=== PATIENT | male | born 1955 | race American Indian/Alaskan Native ===

== ENCOUNTER 2017-12-02 21:16 | Emergency (ER) | payer OTHER ==
[2017-12-02 21:29] VITALS: BP 164/87
[2017-12-02] MEDS ORDERED: ASPIRIN PO ONE (21:29)
[2017-12-02 21:58] LABS: Basophils # (Auto) 0.1 K/mm3 (0.0-0.1); Basophils % (Auto) 0.6 % (0.0-1.8); Eosinophils # (Auto) 0.1 K/mm3 (0.0-0.4); Eosinophils % (Auto) 0.8 % (0.0-4.3); Hematocrit 45.3 % (35.5-45.6); Lymphocytes # (Auto) 3.3 K/mm3 (1.2-5.4); Lymphocytes % (Auto) 33.7 % (13.4-35.0); Mean Corpuscular HGB Conc 33 % (32-34); Mean Corpuscular Hemoglobin 29 pg (28-32); Mean Corpuscular Volume 87 fl (84-94); Monocytes # (Auto) 0.9 K/mm3 (0.0-0.8); Monocytes % (Auto) 9.6 % (0.0-7.3); Platelet Count 255 K/mm3 (140-440); Red Blood Count 5.23 M/mm3 (3.65-5.03)
[2017-12-02 22:08] LABS: BUN/Creatinine Ratio 15; Blood Urea Nitrogen 12 mg/dL (9-20); Calcium 9.4 mg/dL (8.4-10.2); Hemolysis Index 5
== END 2017-12-03 10:00 | disposition left against medical advice (07) ==
LOC: ED 21:16
DX: R07.9 Chest pain, unspecified (principal); Z53.21 Procedure and treatment not carried out due to patient leaving prior to being seen by health care provider
CPT/HCPCS: 36415; 80048; 84484; 85025; 93005; 93010

== ENCOUNTER 2018-10-09 13:45 | Inpatient (IN) | payer MEDICARE, OTHER ==
--- NOTE | 2018-10-09 13:56 | Emergency Department Report ---
Blank Doc - Documentation Documentation: 63-year-old male that presents with left side headache, left sided numbness, and headache. Stated pain started sudden yesterday when he was walking. Stated numbness is intermittent. Currently patient denies any numbness. Describes headache as 6/10. Denies worst headache or tunderclap headache. Patient is neurologically intake, A/O x3. Normal strength. No neuro deficits noted on exam. V/S stable Will order CT scan Sent to [facility] for further evaluation and treatment
--- NOTE | 2018-10-09 14:38 | Cat Scan Report ---
CT HEAD WITHOUT CONTRAST: HISTORY: Headache. TECHNIQUE: Sequential 2.5mm CT images. COMPARISON: none. FINDINGS: Cerebral Parenchyma: Within normal limits. 5 mm chronic lacunar infarct versus dilated perivascular space is noted in the left basal ganglia. Cerebellum: Within normal limits. Brainstem: Within normal limits. Ventricles: Normal. Sella: Normal. Extra-axial spaces: Normal. Basal Cisterns: Normal. Intracranial Hemorrhage: None. Midline Shift: None. Calvarium: Normal. Sinuses: 1 cm polyp versus mucus retention cyst is partially imaged in the superior right maxillary sinus. The remaining sinuses are clear. Mastoid Air Cells: Normal. Visualized Orbits: Normal. IMPRESSION: No acute intracranial process. 5 mm dilated perivascular space versus chronic lacunar infarct in the left basal ganglia. I favor a dilated perivascular space. Right maxillary sinus disease as described.
[2018-10-09 14:42] LABS: Hematocrit 42.4 % (35.5-45.6); Hemoglobin 14.2 gm/dl (11.8-15.2); Mean Corpuscular HGB Conc 34 % (32-34); Mean Corpuscular Volume 84 fl (84-94); Platelet Count 271 K/mm3 (140-440); Red Blood Count 5.05 M/mm3 (3.65-5.03); Red Cell Distribution Width 13.5 % (13.2-15.2)
--- NOTE | 2018-10-09 14:59 | Emergency Department Report ---
<ERICA CHEUNG - Last Filed: 10/09/18 16:02> ED Neuro Deficit HPI - General Chief Complaint: Weakness Stated Complaint: LFT SIDE NUMB/HEAD PAIN Time Seen by Provider: 10/09/18 13:52 Source: patient Mode of arrival: Ambulatory Limitations: No Limitations - History of Present Illness Initial Comments: Patient is a 63-year-old -Sud[place] male who comes to the ER today complaining of an episode he experienced last night. He was walking and developed left arm numbness and tingling after he felt a pop in his head. He denies any difficulty walking after the incident, facial weakness, or difficulty finding words or with speech after the episode last night. He states that he went home, laid down and went within a couple hours the symptoms resolved. He has no numbness or tingling today but he does have generalized weakness. rx statin asa metoprolol metformin hctz protnoix PMH HTN HPLD DM STRESS TEST/CATH IN PAST HAVE BEEN NORMAL PER PT-- NO STENT/MO DENIES PREVIOUS TIA/CVA NEG TOBACCO BEER DAILY NO DRUGS PSH KNEE -: Sudden Location: left arm Presenting Symptoms: Present: Sudden, Severe Headache. Absent: Weak/Paralyzed One Side, Blurred/Loss of Vision, Facial Droop/Numbness, Unable to Speak Clearly, Altered Mental Status History of same: No Place: home Severity: mild Quality: weak, numb, other (started yesterday evening while walking) Improves With: time Worsens With: none On Anticoagulants: No (asa) Context: sudden onset Associated Symptoms: headaches Treatments Prior to Arrival: Aspirin - Related Data Home Medications: Home Medications Medication Instructions Recorded Confirmed Last Taken Metoprolol [Lopressor TAB] 50 mg PO DAILY 01/31/15 10/09/18 08/02/15 metFORMIN [Glucophage] 500 mg PO BID 01/31/15 10/09/18 08/02/15 hydroCHLOROthiazide [Hctz] 12.5 mg PO DAILY 07/16/15 10/09/18 08/02/15 Aspirin [Aspirin BABY CHEW TAB] 81 mg PO DAILY 08/02/15 10/09/18 08/02/15 NIFEdipine XL [Procardia Xl] 90 mg PO DAILY 10/09/18 10/09/18 Unknown Previous Rx's Medication Instructions Recorded Last Taken Type Pantoprazole [Protonix TAB] 20 mg PO BID #60 tablet. 07/17/15 08/02/15 Rx Allergies/Adverse Reactions: Allergies Allergy/AdvReac Type Severity Reaction Status Date / Time No Known Allergies Allergy Verified 10/09/18 13:47 ED Review of Systems Comment: All other systems reviewed and negative Eyes: denies: eye pain ENT: denies: ear pain Respiratory: denies: cough Cardiovascular: denies: chest pain Endocrine: denies: flushing Neurological: as per HPI, headache, weakness, numbness, paresthesias. denies: confusion, abnormal gait, vertigo Psychiatric: denies: anxiety Hematological/Lymphatic: denies: easy bleeding ED Past Medical Hx - Past Medical History Hx Hypertension: Yes Hx Diabetes: Yes Hx Arthritis: Yes - Surgical History Additional Surgical History: right knee surgery, heart cath x3 - Family History Family history: no significant - Social History Smoking Status: Former Smoker Substance Use Type: None - Medications Home Medications: Home Medications Medication Instructions Recorded Confirmed Last Taken Type Metoprolol [Lopressor TAB] 50 mg PO DAILY 01/31/15 10/09/18 08/02/15 History metFORMIN [Glucophage] 500 mg PO BID 01/31/15 10/09/18 08/02/15 History hydroCHLOROthiazide [Hctz] 12.5 mg PO DAILY 07/16/15 10/09/18 08/02/15 History Pantoprazole [Protonix TAB] 20 mg PO BID #60 tablet. 07/17/15 10/09/18 08/02/15 Rx Aspirin [Aspirin BABY CHEW TAB] 81 mg PO DAILY 08/02/15 10/09/18 08/02/15 History NIFEdipine XL [Procardia Xl] 90 mg PO DAILY 10/09/18 10/09/18 Unknown History ED Neuro Physical Exam - General Limitations: No Limitations General appearance: alert Suspected Stroke: No (TIA) - Head Head exam: Present: atraumatic - NIHSS 1a. Level of Consciousness: alert/keenly responsive 1b. LOC Questions: answers both correctly 1c. LOC Commands: performs tasks correctly 2. Best Gaze: normal 3. Visual: no visual loss 4. Facial Palsy: normal symmetrical movement 5b. Motor Arm Right: no drift 5a. Motor Arm Left: no drift 6a. Motor Leg Left: no drift 6b. Motor Leg Right: no drift 7. Limb Ataxia: absent 8. Sensory: normal 9. Best Language: no aphasia 10. Dysarthria: normal 11. Extinction/Inattention: no abnormality Total Score: 0 Stroke Severity: No Stroke Symptoms - Psychiatric Psychiatric exam: Present: normal affect, normal mood - Skin Skin exam: Present: warm, dry, intact ED Course - Reevaluation(s) Reevaluation #1: 10/09/18 15:[address] SOTO Reevaluation #2: 10/09/18 16:[address] RAE PT TO BE ADMITTED FOR FURTHER EVALUATION - Lab Data Result diagrams: 10/09/18 14:30 10/09/18 14:30 - EKG Data -: EKG Interpreted by Me EKG shows normal: sinus rhythm When compared to previous EKG there are: changes noted Interpretation: no acute changes - Radiology Data Radiology results: report reviewed NO ACUTE BLEED - Medical Decision Making LABS NOTED CT NOTED --DISCUSSED WITH DR SOTO NEURO INTACT- NO PRONATOR DRIFT, NO CN DEF., AMBULATORY GEN WEAKNESS HX HTN, HPLD, DM EMR REVIEWED DISCUSSED WITH DR RAE WILL BE ADMITTED FOR EVALUATION Labs 10/09/18 10/09/18 14:30 14:30 WBC 6.8 RBC 5.05 H Hgb 14.2 Hct 42.4 MCV 84 MCH 28 MCHC 34 RDW 13.5 Plt Count 271 Sodium 137 Potassium 4.1 Chloride 97.4 L Carbon Dioxide 25 Anion Gap 19 BUN 10 Creatinine 0.8 Estimated GFR > 60 BUN/Creatinine Ratio 13 Glucose 222 H Calcium 9.0 Total Bilirubin 0.40 AST 16 ALT 14 Alkaline Phosphatase 65 Troponin T < 0.010 Total Protein 7.7 Albumin 4.4 Albumin/Globulin Ratio 1.3 - Differential Diagnosis ro tia - Core Measures AMI Core Measures Followed: No Measure Exclusions: not indicated - Thrombolytic Inclusion/Exclusion Thrombolytic Exclusion Criteria: Symptom Onset > 3 Hours Thrombolytic Inclusion Criteria: Negative CT Scan for ICH, Age 18 or Older ED Disposition Clinical Impression: Weakness HTN (hypertension) Qualifiers: Hypertension type: unspecified Qualified Code(s): I10 - Essential (primary) hypertension Disposition: OP ADMIT IP TO THIS HOSP Is pt being admited?: Yes Does the pt Need Aspirin: Yes Condition: Stable Instructions: Hypertension (ED) Time of Disposition: 15:16 ED Neuro Deficit EXAM - General General appearance: alert Limitations: No Limitations - Head Head exam: Positive: atraumatic - Eye Eye exam: PERRL - Neurological Neurological Exam: Positive: Alert, Altered, Oriented X3, CN II-XII Intact, No rmal Gait Neuro Exam: Facial Palsy with Forehead Movement: Normal, Facial Palsy without Forehead Movement: Normal - Stefania Coma Scale Best Eye Response (Stefania): (4) open spontaneously Best Motor Response (Stefania): (6) obeys commands Best Verbal Response (Stefania): (5) oriented Stefania Total: 15 - Psychiatric Psychiatric exam: Positive: normal affect, normal mood - Skin Skin exam: Positive: warm, dry <ALBINO SOTO - Last Filed: 10/09/18 17:06> ED Review of Systems ROS: Stated complaint: LFT SIDE NUMB/HEAD PAIN Other details as noted in HPI ED Course Vital Signs 10/09/18 13:53 Temperature 97.9 F Pulse Rate 80 Respiratory 16 Rate Blood Pressure 149/86 O2 Sat by Pulse 99 Oximetry - Lab Data Result diagrams: 10/09/18 14:30 10/09/18 14:30 Lab Results 10/09/18 10/09/18 10/09/18 Range/Units 14:30 14:30 Unknown WBC 6.8 (4.5-11.0) K/mm3 RBC 5.05 H (3.65-5.03) M/mm3 Hgb 14.2 (11.8-15.2) gm/dl Hct 42.4 (35.5-45.6) % MCV 84 (84-94) fl MCH 28 (28-32) pg MCHC 34 (32-34) % RDW 13.5 (13.2-15.2) % Plt Count 271 (140-440) K/mm3 Sodium 137 (137-145) mmol/L Potassium 4.1 (3.6-5.0) mmol/L Chloride 97.4 L (98-107) mmol/L Carbon Dioxide 25 (22-30) mmol/L Anion Gap 19 mmol/L BUN 10 (9-20) mg/dL Creatinine 0.8 (0.8-1.5) mg/dL Estimated GFR > 60 ml/min BUN/Creatinine Ratio 13 % Glucose 222 H (75-100) mg/dL Calcium 9.0 (8.4-10.2) mg/dL Total Bilirubin 0.40 (0.1-1.2) mg/dL AST 16 (5-40) units/L ALT 14 (7-56) units/L Alkaline Phosphatase 65 (35-129) units/L Troponin T < 0.010 (0.00-0.029) ng/mL Total Protein 7.7 (6.3-8.2) g/dL Albumin 4.4 (3.9-5) g/dL Albumin/Globulin Ratio 1.3 % Urine Color Yellow (Yellow) Urine Turbidity Clear (Clear) Urine pH 5.0 (5.0-7.0) Ur Specific Barry 1.020 (1.003-1.030) Urine Protein <15 mg/dl (Negative) mg/dL Urine Glucose (UA) 150 (Negative) mg/dL Urine Ketones Neg (Negative) mg/dL Urine Blood Neg (Negative) Urine Nitrite Neg (Negative) Urine Bilirubin Neg (Negative) Urine Urobilinogen 4.0 (<2.0) mg/dL Ur Leukocyte Esterase Neg (Negative) Urine WBC (Auto) < 1.0 (0.0-6.0) /HPF Urine RBC (Auto) 2.0 (0.0-6.0) /HPF Urine Mucus Few /HPF - Medical Decision Making Pt bobbi possible TIa and will be admitted for further care. Critical care attestation.: If time is entered above; I have spent that time in minutes in the direct care of this critically ill patient, excluding procedure time.
[2018-10-09 15:01] LABS: Alanine Aminotransferase 14 units/L (7-56); BUN/Creatinine Ratio 13; Blood Urea Nitrogen 10 mg/dL (9-20)
[2018-10-09 15:02] LABS: Albumin 4.4 g/dL (3.9-5); Hemolysis Index 15
[2018-10-09] MEDS ORDERED: BABY ASPIRIN PO ONE (15:16)
[2018-10-09 16:10] LABS: Bilirubin,Urine NEG (Negative); Blood,Urine NEG (Negative); Color,Urine Yellow (Yellow); Mucus,Urine FEW /HPF; Protein,Urine <15 mg/dL mg/dL (Negative); WBC,Urine < 1.0 /HPF (0.0-6.0)
--- NOTE | 2018-10-09 16:36 | XRay Report ---
FINAL REPORT EXAM: XR CHEST ROUTINE 2V HISTORY: WEAKNESS TECHNIQUE: Two view chest PA and lateral PRIORS: None. FINDINGS: Cardiac and mediastinal contours are unremarkable. No focal pulmonary infiltrate is identified. No pleural fluid collection seen. Pulmonary vasculature is unremarkable. IMPRESSION: Negative two-view chest
[2018-10-09] MEDS ORDERED: DILAUDID IV PRN (22:59)
[2018-10-09] MEDS ORDERED: TYLENOL PO PRN (22:59)
[2018-10-09] MEDS ORDERED: SODIUM CHLORIDE FLUSH SYRINGE 10 ML IV PRN (22:59)
[2018-10-09] MEDS ORDERED: ZOFRAN IV PRN (22:59)
--- NOTE | 2018-10-09 23:08 | History and Physical Report ---
History of Present Illness Date of examination: 10/09/18 Date of admission: 10/09/18 15:59 Chief complaint: Left-sided numbness last night lasting for about 1 hour and resolved History of present illness: 63-year-old -Trist[place] male with history of hypertension and type 2 diabetes and hyperlipidemia comes in for left arm numbness and tingling which lasted for about 1 hour. Did not have any weakness in the left upper extremity and left lower extremity. Had some facial numbness also. Symptoms resolved over an hour time period no exacerbating or relieving factors. No residual deficits. Some blurred vision present. And some difficulty speaking yesterday. All symptoms have resolved completely Past Medical History Hx Hypertension: Yes Hx Diabetes: Yes Hx Arthritis: Yes Surgical History Additional Surgical History: right knee surgery, heart cath x3 Family History Family history: no significant Social History Smoking Status: Former Smoker Substance Use Type: None Medications Home Medications: Home Medications Medication Instructions Recorded Confirmed Last Taken Type Metoprolol [Lopressor TAB] 50 mg PO DAILY 01/31/15 10/09/18 08/02/15 History metFORMIN [Glucophage] 500 mg PO BID 01/31/15 10/09/18 08/02/15 History hydroCHLOROthiazide [Hctz] 12.5 mg PO DAILY 07/16/15 10/09/18 08/02/15 History Pantoprazole [Protonix TAB] 20 mg PO BID #60 tablet. 07/17/15 10/09/18 08/02/15 Rx Aspirin [Aspirin BABY CHEW TAB] 81 mg PO DAILY 08/02/15 10/09/18 08/02/15 History NIFEdipine XL [Procardia Xl] 90 mg PO DAILY 10/09/18 10/09/18 Unknown History Review of Systems Comment: All other systems reviewed and negative Eyes: denies: eye pain ENT: denies: ear pain Respiratory: denies: cough Cardiovascular: denies: chest pain Endocrine: denies: flushing Neurological: as per HPI, headache, weakness, numbness, paresthesias. denies: confusion, abnormal gait, vertigo Psychiatric: denies: anxiety Hematological/Lymphatic: denies: easy bleeding Medications and Allergies Allergies Allergy/AdvReac Type Severity Reaction Status Date / Time No Known Allergies Allergy Verified 10/09/18 13:47 Home Medications Medication Instructions Recorded Confirmed Last Taken Type Metoprolol [Lopressor TAB] 50 mg PO DAILY 01/31/15 10/09/18 08/02/15 History metFORMIN [Glucophage] 500 mg PO BID 01/31/15 10/09/18 08/02/15 History hydroCHLOROthiazide [Hctz] 12.5 mg PO DAILY 07/16/15 10/09/18 08/02/15 History Pantoprazole [Protonix TAB] 20 mg PO BID #60 tablet. 07/17/15 10/09/18 08/02/15 Rx Aspirin [Aspirin BABY CHEW TAB] 81 mg PO DAILY 08/02/15 10/09/18 08/02/15 History NIFEdipine XL [Procardia Xl] 90 mg PO DAILY 10/09/18 10/09/18 Unknown History Active Meds: Active Medications Acetaminophen (Tylenol) 650 mg PO Q4H PRN PRN Reason: Pain MILD(1-3)/Fever >100.5/CHRISTIAN Aspirin (Baby Aspirin) 81 mg PO DAILY [facility] Enoxaparin Sodium (Lovenox) 40 mg SUB-Q QDAY JOSE Famotidine (Pepcid) 20 mg PO BID JOSE Hydrochlorothiazide (Hctz) 12.5 mg PO DAILY JOSE Hydromorphone HCl (Dilaudid) 0.5 mg IV Q3H PRN PRN Reason: Pain , Severe (7-10) Metformin HCl (Glucophage) 500 mg PO BID JOSE Metoprolol Tartrate (Lopressor) 50 mg PO DAILY JOSE Nifedipine (Procardia Xl) 90 mg PO DAILY JOSE Ondansetron HCl (Zofran) 4 mg IV Q8H PRN PRN Reason: Nausea And Vomiting Oxycodone/Acetaminophen (Percocet 5/325) 1 tab PO Q6H PRN PRN Reason: Pain, Moderate (4-6) Pantoprazole Sodium (Protonix) 20 mg PO BID JOSE Sodium Chloride (Sodium Chloride Flush Syringe 10 Ml) 10 ml IV BID JOSE Sodium Chloride (Sodium Chloride Flush Syringe 10 Ml) 10 ml IV PRN PRN PRN Reason: LINE FLUSH Exam - Constitutional Vitals: Temp Pulse Resp BP Pulse Ox 98.0 F 70 18 164/92 97 10/09/18 18:39 10/09/18 18:39 10/09/18 18:39 10/09/18 18:39 10/09/18 18:39 Results - Labs CBC & Chem 7: 10/09/18 14:30 10/09/18 14:30 Labs: Laboratory Last Values WBC 6.8 K/mm3 (4.5-11.0) 10/09/18 14:30 RBC 5.05 M/mm3 (3.65-5.03) H 10/09/18 14:30 Hgb 14.2 gm/dl (11.8-15.2) 10/09/18 14:30 Hct 42.4 % (35.5-45.6) 10/09/18 14:30 MCV 84 fl (84-94) 10/09/18 14:30 MCH 28 pg (28-32) 10/09/18 14:30 MCHC 34 % (32-34) 10/09/18 14:30 RDW 13.5 % (13.2-15.2) 10/09/18 14:30 Plt Count 271 K/mm3 (140-440) 10/09/18 14:30 Sodium 137 mmol/L (137-145) 10/09/18 14:30 Potassium 4.1 mmol/L (3.6-5.0) 10/09/18 14:30 Chloride 97.4 mmol/L (98-107) L 10/09/18 14:30 Carbon Dioxide 25 mmol/L (22-30) 10/09/18 14:30 Anion Gap 19 mmol/L 10/09/18 14:30 BUN 10 mg/dL (9-20) 10/09/18 14:30 Creatinine 0.8 mg/dL (0.8-1.5) 10/09/18 14:30 Estimated GFR > 60 ml/min 10/09/18 14:30 BUN/Creatinine Ratio 13 % 10/09/18 14:30 Glucose 222 mg/dL (75-100) H 10/09/18 14:30 POC Glucose 110 (70-105) H 10/09/18 22:07 Calcium 9.0 mg/dL (8.4-10.2) 10/09/18 14:30 Total Bilirubin 0.40 mg/dL (0.1-1.2) 10/09/18 14:30 AST 16 units/L (5-40) 10/09/18 14:30 ALT 14 units/L (7-56) 10/09/18 14:30 Alkaline Phosphatase 65 units/L (35-129) 10/09/18 14:30 Troponin T < 0.010 ng/mL (0.00-0.029) 10/09/18 14:30 Total Protein 7.7 g/dL (6.3-8.2) 10/09/18 14:30 Albumin 4.4 g/dL (3.9-5) 10/09/18 14:30 Albumin/Globulin Ratio 1.3 % 10/09/18 14:30 Urine Color Yellow (Yellow) 10/09/18 Unknown Urine Turbidity Clear (Clear) 10/09/18 Unknown Urine pH 5.0 (5.0-7.0) 10/09/18 Unknown Ur Specific [place] 1.020 (1.003-1.030) 10/09/18 Unknown Urine Protein <15 mg/dl mg/dL (Negative) 10/09/18 Unknown Urine Glucose (UA) 150 mg/dL (Negative) 10/09/18 Unknown Urine Ketones Neg mg/dL (Negative) 10/09/18 Unknown Urine Blood Neg (Negative) 10/09/18 Unknown Urine Nitrite Neg (Negative) 10/09/18 Unknown Urine Bilirubin Neg (Negative) 10/09/18 Unknown Urine Urobilinogen 4.0 mg/dL (<2.0) 10/09/18 Unknown Ur Leukocyte Esterase Neg (Negative) 10/09/18 Unknown Urine WBC (Auto) < 1.0 /HPF (0.0-6.0) 10/09/18 Unknown Urine RBC (Auto) 2.0 /HPF (0.0-6.0) 10/09/18 Unknown Urine Mucus Few /HPF 10/09/18 Unknown Short CBC 10/09/18 Range/Units 14:30 WBC 6.8 (4.5-11.0) K/mm3 Hgb 14.2 (11.8-15.2) gm/dl Hct 42.4 (35.5-45.6) % Plt Count 271 (140-440) K/mm3 BMP 10/09/18 14:30 Sodium 137 Potassium 4.1 Chloride 97.4 L Carbon Dioxide 25 BUN 10 Creatinine 0.8 Glucose 222 H Calcium 9.0 Cardiac Enzymes 10/09/18 Range/Units 14:30 Troponin T < 0.010 (0.00-0.029) ng/mL Liver Function 10/09/18 Range/Units 14:30 Total Bilirubin 0.40 (0.1-1.2) mg/dL AST 16 (5-40) units/L ALT 14 (7-56) units/L Alkaline Phosphatase 65 (35-129) units/L Albumin 4.4 (3.9-5) g/dL Urine 10/09/18 Range/Units Unknown Urine Color Yellow (Yellow) Urine pH 5.0 (5.0-7.0) Ur Specific [place] 1.020 (1.003-1.030) Urine Protein <15 mg/dl (Negative) mg/dL Urine Glucose (UA) 150 (Negative) mg/dL - Imaging and Cardiology EKG: report reviewed (normal sinus rhythm right bundle-branch block and left ventricular hypertrophy heart rate of 68/m) Chest x-ray: report reviewed (no acute findings) Imaging and Cardiology: Head CT IMPRESSION: No acute intracranial process. 5 mm dilated perivascular space versus chronic lacunar infarct in the left basal ganglia. I favor a dilated perivascular space. Right maxillary sinus disease as described. Assessment and Plan Advance Directives: Yes (full code) VTE prophylaxis?: Chemical Plan of care discussed with patient/family: Yes - Patient Problems (1) TIA (transient ischemic attack) Current Visit: Yes Status: Acute Plan to address problem: TIA workup in the form of MRI brain and carotid duplex scan and echocardiogram. MRA was not ordered Patient to continue aspirin on a regular basis (2) HTN (hypertension) Current Visit: Yes Status: Chronic Qualifiers: Hypertension type: essential hypertension Qualified Code(s): I10 - Essentia l (primary) hypertension Plan to address problem: Continue antihypertensives (3) Type 2 diabetes mellitus Current Visit: Yes Status: Chronic Qualifiers: Diabetes mellitus skilled nursing insulin use: without skilled nursing use Plan to address problem: Check hemoglobin A1c Uncontrolled Adjust medications Add glimepiride (4) Hyperlipidemia Current Visit: Yes Status: Chronic Qualifiers: Hyperlipidemia type: mixed hyperlipidemia Qualified Code(s): E78.2 - Mixed hyperlipidemia Plan to address problem: Continue statins (5) DVT prophylaxis Current Visit: Yes Status: Acute Plan to address problem: On Lovenox and GI prophylaxis
[2018-10-10] MEDS: PEPCID PO SCH ×3 (00:10→22:15)
[2018-10-10] MEDS: PROTONIX PO SCH ×3 (00:10→22:14)
[2018-10-10 05:22] LABS: Basophils # (Auto) 0.1 K/mm3 (0.0-0.1); Basophils % (Auto) 0.7 % (0.0-1.8); Eosinophils # (Auto) 0.1 K/mm3 (0.0-0.4); Eosinophils % (Auto) 1.7 % (0.0-4.3); Hematocrit 40.5 % (35.5-45.6); Hemoglobin 13.3 gm/dl (11.8-15.2); Lymphocytes # (Auto) 3.9 K/mm3 (1.2-5.4); Lymphocytes % (Auto) 47.7 % (13.4-35.0); Mean Corpuscular HGB Conc 33 % (32-34); Mean Corpuscular Volume 84 fl (84-94); Monocytes # (Auto) 0.6 K/mm3 (0.0-0.8); Monocytes % (Auto) 7.7 % (0.0-7.3); Platelet Count 255 K/mm3 (140-440); Red Blood Count 4.82 M/mm3 (3.65-5.03); Red Cell Distribution Width 13.3 % (13.2-15.2)
[2018-10-10 05:51] LABS: Alanine Aminotransferase 11 units/L (7-56); Albumin 3.7 g/dL (3.9-5); BUN/Creatinine Ratio 13; Blood Urea Nitrogen 10 mg/dL (9-20); Calcium 8.6 mg/dL (8.4-10.2); Hemolysis Index 11
[2018-10-10] MEDS: HumaLOG SUB-Q SCH ×4 (09:00→22:30)
[2018-10-10] MEDS ORDERED: LOVENOX SUB-Q SCH ×2 (10:00→22:00)
--- NOTE | 2018-10-10 11:07 | Vascular Lab Report ---
FINAL REPORT EXAM: VL CAROTID DUPLEX BILAT HISTORY: TIA TECHNIQUE: Carotid ultrasound. Degree of carotid stenosis calculated by indirect methods via the pea k systolic velocities of the ICA and CCA and reference with the society of Radiologist and Ultrasound consensus conference radiology 2003. PRIORS: None currently available. FINDINGS: RIGHT CCA, ICA, and ECA (cm/s): 79, 64, and 80. Ratio = 0.81. LEFT CCA, ICA, and ECA (cm/s): 79, 58, and 71. Ratio = 0.73. There is plaque in both carotids. Both vertebral arteries demonstrate antegrade flow. Normal spectral rhythm is identified. IMPRESSION: No hemodynamically significant (> 50%) stenosis noted based on the ratios, velocities, and color D oppler images.
[2018-10-10] MEDS: BABY ASPIRIN PO SCH (11:34)
[2018-10-10] MEDS: PERCOCET 5/325 PO PRN ×2 (11:35→22:20)
[2018-10-10] MEDS: HCTZ PO SCH (11:35)
[2018-10-10] MEDS: GLUCOPHAGE PO SCH ×2 (11:35→19:16)
[2018-10-10] MEDS: AMARYL PO SCH (11:35)
[2018-10-10] MEDS: LOPRESSOR PO SCH (11:35)
[2018-10-10] MEDS: PROCARDIA XL PO SCH (11:36)
[2018-10-10] MEDS: SODIUM CHLORIDE FLUSH SYRINGE 10 ML IV SCH ×2 (11:37→22:31)
[2018-10-10 11:39] LABS: Chol/HDL Ratio 3.22 %
--- NOTE | 2018-10-10 12:10 | Magnetic Resonance Report ---
MRI OF THE BRAIN WITHOUT CONTRAST: HISTORY: TIA PROCEDURE: Multiplanar, multisequence MR imaging of the brain without IV contrast was performed. FINDINGS: The brain parenchyma signal intensity and its chang white interface are within normal limits on all sequences. Tiny dilated perivascular space in the left basal ganglia is noted. No evidence for acute ischemia, hemorrhage or mass. No chronic infarct or extra-axial fluid collection. The midline structures are central. The basal cisterns are patent. Normal ventricular size. The orbital cavities and sella turcica demonstrate no abnormality. The visualized paranasal sinuses and mastoid air cells are well aerated. 1 cm polyp in the inferior right maxillary sinus is again noted. IMPRESSION: Unremarkable non-enhanced MRI of the brain.
--- NOTE | 2018-10-10 16:46 | Progress Note ---
Assessment and Plan Assessment and plan: 63-year-old male patient with significant history of hypertension diabetes mellitus osteoarthritis was admitted through emergency room with left-sided weakness and numbness which resolved after 1 hour; not a candidate for TPA Patient had extensive neuro workup which was negative as mentioned --Possible TIA;, continue aspirin and statin Extensive neuro workup negative Follow neurology evaluation and recommendations Physical therapy and occupational therapy Workup :is negative so far; Carotid Doppler; less than 50% stenosis, not hemodynamically significant CT head without contrast; no acute intracranial abnormality, chronic lacunar infarct in the left basal ganglia, right maxillary sinus disease MRI brain; no acute abnormality Echocardiogram; pending Chest x-ray; normal study --Hypertension; moderate control, continue current antihypertensives When necessary medications --Type 2 diabetes mellitus; Accu-Chek sliding scale coverage and ADA diet Insulin as needed, hemoglobin A1c 7.3 --Dyslipidemia; continue statin and low cholesterol diet --Obesity; BMI 37.7; advised weight reduction when medically stable Physical therapy occupational therapy and rehabilitation Closely monitor the patient and adjust the management as needed Possible discharge in 1-2 days if stable History Interval history: Patient seen and examined,medical records reviewed. Patient feels better, no new complaints numbness and weakness completely resolved Vital signs stable Hospitalist Physical - Constitutional Vitals: Temp Pulse Resp BP Pulse Ox 97.8 F 76 20 156/90 98 10/10/18 11:42 10/10/18 11:42 10/10/18 11:42 10/10/18 11:42 10/10/18 11:42 General appearance: Present: no acute distress, well-nourished, obese - EENT Eyes: Present: PERRL, EOM intact - Neck Neck: Present: supple, normal ROM - Respiratory Respiratory effort: normal Respiratory: negative: rales, rhonchi, wheezing - Cardiovascular Rhythm: regular Heart Sounds: Present: S1 & S2 - Extremities Extremities: no ischemia, No edema - Abdominal General gastrointestinal: soft, non-tender, non-distended, normal bowel sounds - Integumentary Integumentary: Present: clear, warm - Psychiatric Psychiatric: appropriate mood/affect, cooperative - Neurologic Neurologic: CNII-XII intact, moves all extremities Results - Labs CBC & Chem 7: 10/10/18 04:56 10/10/18 04:56 Labs: Laboratory Last Values WBC 8.3 K/mm3 (4.5-11.0) 10/10/18 04:56 RBC 4.82 M/mm3 (3.65-5.03) 10/10/18 04:56 Hgb 13.3 gm/dl (11.8-15.2) 10/10/18 04:56 Hct 40.5 % (35.5-45.6) 10/10/18 04:56 MCV 84 fl (84-94) 10/10/18 04:56 MCH 28 pg (28-32) 10/10/18 04:56 MCHC 33 % (32-34) 10/10/18 04:56 RDW 13.3 % (13.2-15.2) 10/10/18 04:56 Plt Count 255 K/mm3 (140-440) 10/10/18 04:56 Lymph % (Auto) 47.7 % (13.4-35.0) H 10/10/18 04:56 Price % (Auto) 7.7 % (0.0-7.3) H 10/10/18 04:56 Eos % (Auto) 1.7 % (0.0-4.3) 10/10/18 04:56 Baso % (Auto) 0.7 % (0.0-1.8) 10/10/18 04:56 Lymph # 3.9 K/mm3 (1.2-5.4) 10/10/18 04:56 Price # 0.6 K/mm3 (0.0-0.8) 10/10/18 04:56 Eos # 0.1 K/mm3 (0.0-0.4) 10/10/18 04:56 Baso # 0.1 K/mm3 (0.0-0.1) 10/10/18 04:56 Seg Neutrophils % 42.2 % (40.0-70.0) 10/10/18 04:56 Seg Neutrophils # 3.5 K/mm3 (1.8-7.7) 10/10/18 04:56 Sodium 139 mmol/L (137-145) 10/10/18 04:56 Potassium 3.9 mmol/L (3.6-5.0) 10/10/18 04:56 Chloride 99.5 mmol/L (98-107) 10/10/18 04:56 Carbon Dioxide 28 mmol/L (22-30) 10/10/18 04:56 Anion Gap 15 mmol/L 10/10/18 04:56 BUN 10 mg/dL (9-20) 10/10/18 04:56 Creatinine 0.8 mg/dL (0.8-1.5) 10/10/18 04:56 Estimated GFR > 60 ml/min 10/10/18 04:56 BUN/Creatinine Ratio 13 % 10/10/18 04:56 Glucose 119 mg/dL (75-100) H 10/10/18 04:56 POC Glucose 183 (70-105) H 10/10/18 11:45 Hemoglobin A1c 7.3 % (4-6) H 10/09/18 23:09 Calcium 8.6 mg/dL (8.4-10.2) 10/10/18 04:56 Total Bilirubin 0.40 mg/dL (0.1-1.2) 10/10/18 04:56 AST 14 units/L (5-40) 10/10/18 04:56 ALT 11 units/L (7-56) 10/10/18 04:56 Alkaline Phosphatase 58 units/L (35-129) 10/10/18 04:56 Troponin T < 0.010 ng/mL (0.00-0.029) 10/09/18 14:30 Total Protein 6.5 g/dL (6.3-8.2) 10/10/18 04:56 Albumin 3.7 g/dL (3.9-5) L 10/10/18 04:56 Albumin/Globulin Ratio 1.3 % 10/10/18 04:56 Triglycerides 142 mg/dL (2-149) 10/10/18 04:56 Cholesterol 145 mg/dL (50-199) 10/10/18 04:56 LDL Cholesterol Direct 78 mg/dL (50-130) 10/10/18 04:56 HDL Cholesterol 45 mg/dL (40-59) 10/10/18 04:56 Cholesterol/HDL Ratio 3.22 % 10/10/18 04:56 Urine Color Yellow (Yellow) 10/09/18 Unknown Urine Turbidity Clear (Clear) 10/09/18 Unknown Urine pH 5.0 (5.0-7.0) 10/09/18 Unknown Ur Specific [place] 1.020 (1.003-1.030) 10/09/18 Unknown Urine Protein <15 mg/dl mg/dL (Negative) 10/09/18 Unknown Urine Glucose (UA) 150 mg/dL (Negative) 10/09/18 Unknown Urine Ketones Neg mg/dL (Negative) 10/09/18 Unknown Urine Blood Neg (Negative) 10/09/18 Unknown Urine Nitrite Neg (Negative) 10/09/18 Unknown Urine Bilirubin Neg (Negative) 10/09/18 Unknown Urine Urobilinogen 4.0 mg/dL (<2.0) 10/09/18 Unknown Ur Leukocyte Esterase Neg (Negative) 10/09/18 Unknown Urine WBC (Auto) < 1.0 /HPF (0.0-6.0) 10/09/18 Unknown Urine RBC (Auto) 2.0 /HPF (0.0-6.0) 10/09/18 Unknown Urine Mucus Few /HPF 10/09/18 Unknown
[2018-10-10] MEDS ORDERED: DILAUDID IV PRN (16:47)
--- NOTE | 2018-10-10 18:19 | Progress Note ---
Subjective Date of service: 10/10/18 Interval history: patient seen and fully assessed he is stable and neuro wexam is normal susopect TIA secondary to HTN the MRI is normal therefore no acutestroke recommend HTN control and statin to prevent further TIAs Objective - Vital Sign Vital Signs - 12hr 10/10/18 10/10/18 10/10/18 10:00 11:35 11:42 Temperature 97.8 F Pulse Rate 70 76 Respiratory 20 Rate Blood Pressure 154/85 156/90 O2 Sat by Pulse 98 98 Oximetry 10/10/18 16:42 Temperature 98.3 F Pulse Rate 60 Respiratory 20 Rate Blood Pressure 128/70 O2 Sat by Pulse 97 Oximetry - Laboratory Findings CBC and BMP: 10/10/18 04:56 10/10/18 04:56 Abnormal Lab Findings: Abnormal Labs 10/09/18 10/09/18 10/09/18 14:30 14:30 18:45 RBC 5.05 H Lymph % (Auto) [place] % (Auto) Chloride 97.4 L Glucose 222 H POC Glucose 106 H Hemoglobin A1c Albumin 10/09/18 10/09/18 10/10/18 22:07 23:09 04:56 RBC Lymph % (Auto) 47.7 H [place] % (Auto) 7.7 H Chloride Glucose POC Glucose 110 H Hemoglobin A1c 7.3 H Albumin 10/10/18 10/10/18 10/10/18 04:56 08:40 11:45 RBC Lymph % (Auto) [place] % (Auto) Chloride Glucose 119 H POC Glucose 132 H 183 H Hemoglobin A1c Albumin 3.7 L
[2018-10-10] MEDS: AUGMENTIN 875 MG PO SCH (22:14)
[2018-10-11 06:04] VITALS: BP 124/78
[2018-10-11] MEDS: HumaLOG SUB-Q SCH ×2 (07:30→11:30)
[2018-10-11] MEDS: LOPRESSOR PO SCH (08:00)
[2018-10-11] MEDS: AMARYL PO SCH (09:08)
[2018-10-11] MEDS: GLUCOPHAGE PO SCH (09:08)
[2018-10-11] MEDS: BABY ASPIRIN PO SCH (09:57)
[2018-10-11] MEDS: AUGMENTIN 875 MG PO SCH (09:57)
[2018-10-11] MEDS: PROCARDIA XL PO SCH (09:57)
[2018-10-11] MEDS: PROTONIX PO SCH (09:57)
[2018-10-11] MEDS: HCTZ PO SCH (09:57)
[2018-10-11] MEDS: PEPCID PO SCH (09:57)
[2018-10-11] MEDS: SODIUM CHLORIDE FLUSH SYRINGE 10 ML IV SCH (09:58)
[2018-10-11] MEDS: PERCOCET 5/325 PO PRN (10:04)
--- NOTE | 2018-10-11 12:24 | Discharge Summary ---
Providers - Providers Date of Admission: 10/09/18 15:59 Date of discharge: 10/11/18 Attending physician: SAMIRA CALDERON 10/09/18 22:59 Consult to Physician [CONS] Routine Comment: Consulting Provider: FARNAZ GONSALVES Physician Instructions: Reason For Exam: tia 10/10/18 15:33 Physical Therapy Evaluation and Treat [CONS] Routine Comment: Reason For Exam: TIA Primary care physician: ROWENA HERRING Hospitalization Reason for admission: Left sided weakness and numbness/resolved after 1 hr Condition: Stable Pertinent studies: Workup :is negative so far; Carotid Doppler; less than 50% stenosis, not hemodynamically significant CT head without contrast; no acute intracranial abnormality, chronic lacunar infarct in the left basal ganglia, right maxillary sinus disease MRI brain; no acute abnormality Echocardiogram; pending Chest x-ray; normal study Hospital course: 63-year-old male patient with significant history of hypertension diabetes mellitus osteoarthritis was admitted through emergency room with left-sided weakness and numbness which resolved after 1 hour; not a candidate for TPA, Patient had extensive neuro workup which was negative Today Patient is stable and ambulatory tolerating oral nutrition No new complaints, vital signs reviewed, Hemodynamically and clinically stable at discharge Discharge Diagnosis: -- TIA;, continue aspirin and statin Extensive neuro workup negative. Acute CVA was ruled out Workup :is negative so far; Carotid Doppler; less than 50% stenosis, not hemodynamically significant CT head without contrast; no acute intracranial abnormality, chronic lacunar infarct in the left basal ganglia, right maxillary sinus disease MRI brain; no acute abnormality Echocardiogram; pending Chest x-ray; normal study --Maxillary Sinusitis; pain medications and Augmentin for 7 days --Hypertension; moderate control, continue current antihypertensives When necessary medications --Type 2 diabetes mellitus; Accu-Chek sliding scale coverage and ADA diet Insulin as needed, hemoglobin A1c 7.3 --Dyslipidemia; continue statin and low cholesterol diet --Obesity; BMI 37.7; advised weight reduction when medically stable Physical therapy occupational therapy and rehabilitation Closely monitor the patient and adjust the management as needed Possible discharge in 1-2 days if stable Disposition: -01 TO HOME OR SELFCARE Time spent for discharge: 32 min Core Measure Documentation - Palliative Care Palliative Care/ Comfort Measures: Not Applicable - Core Measures Any of the following diagnoses?: none Exam - Constitutional Vitals: Temp Pulse Resp BP Pulse Ox 98.2 F 62 18 124/78 95 10/11/18 05:50 10/11/18 08:00 10/11/18 05:50 10/11/18 08:00 10/11/18 05:50 General appearance: Present: no acute distress, well-nourished, obese - EENT Eyes: Present: PERRL, EOM intact - Neck Neck: Present: supple, normal ROM - Respiratory Respiratory effort: normal, pursed lips - Cardiovascular Rhythm: regular Heart Sounds: Present: S1 & S2 - Extremities Extremities: no ischemia, No edema - Abdominal General gastrointestinal: Present: soft, non-tender, non-distended, normal bowel sounds - Integumentary Integumentary: Present: clear, warm - Musculoskeletal Musculoskeletal: strength equal bilaterally - Psychiatric Psychiatric: appropriate mood/affect, cooperative - Neurologic Neurologic: CNII-XII intact, moves all extremities Plan Activity: no restrictions Diet: diabetic Additional Instructions: Advice Regular exercise and weight reduction Follow up with: ROWENA HERRING MD [Primary Care Provider] - 3-5 Days SAUNDRA JIMENES MD [Staff Physician] - 7 Days Prescriptions: Amoxicillin/K Clav Tab [Augmentin 875MG TAB] 1 each PO Q12HR #14 tablet AtorvaSTATin [Lipitor] 20 mg PO QHS #30 tablet Glimepiride [Amaryl] 2 mg PO QDDIAB #30 tablet oxyCODONE /ACETAMINOPHEN [Percocet 5/325 mg] 1 tab PO BID PRN #6 tablet PRN Reason: Pain, Moderate (4-6)
--- NOTE | 2018-10-11 14:15 | Progress Note ---
Subjective Date of service: 10/11/18 Interval history: patient may go home and is stable for discharge the MRI is negative and the BP is good and well controlled plan follow up in the office Thanks Objective - Vital Sign Vital Signs - 12hr 10/11/18 10/11/18 05:50 08:00 Temperature 98.2 F Pulse Rate 62 62 Respiratory 18 Rate Blood Pressure 124/78 124/78 O2 Sat by Pulse 95 Oximetry - Laboratory Findings CBC and BMP: 10/10/18 04:56 10/10/18 04:56 Abnormal Lab Findings: Abnormal Labs 10/09/18 10/09/18 10/09/18 14:30 14:30 18:45 RBC 5.05 H Lymph % (Auto) [place] % (Auto) Chloride 97.4 L Glucose 222 H POC Glucose 106 H Hemoglobin A1c Albumin 10/09/18 10/09/18 10/10/18 22:07 23:09 04:56 RBC Lymph % (Auto) 47.7 H [place] % (Auto) 7.7 H Chloride Glucose POC Glucose 110 H Hemoglobin A1c 7.3 H Albumin 10/10/18 10/10/18 10/10/18 04:56 08:40 11:45 RBC Lymph % (Auto) [place] % (Auto) Chloride Glucose 119 H POC Glucose 132 H 183 H Hemoglobin A1c Albumin 3.7 L 10/10/18 10/10/18 10/11/18 16:48 21:18 08:01 RBC Lymph % (Auto) [place] % (Auto) Chloride Glucose POC Glucose 132 H 221 H 123 H Hemoglobin A1c Albumin 10/11/18 11:29 RBC Lymph % (Auto) [place] % (Auto) Chloride Glucose POC Glucose 130 H Hemoglobin A1c Albumin
--- NOTE | 2018-10-11 17:32 | Consultation ---
HISTORY OF PRESENT ILLNESS: This is a 63-year-old black male that enters [facility] Room on 10/09/2018. The patient had presented with new onset of left-sided headache, left-sided numbness and severe headache started having when he was walking. He states the numbness intermittently got better, then worse, then worse again, headache when present in the Emergency Room was mild to moderate. He was evaluated initially, had a negative CT scan of the head. He was assessed. He had no risk factors of stroke including poorly controlled hypertension and also prior history of taking multiple medications, some of which he may have missed. CURRENT MEDICATIONS: Metoprolol, takes Glucophage, hydrochlorothiazide, aspirin, nifedipine 90 mg. ALLERGIES: He also has allergies to nonmedications. He has risk factor of age, sex, hypertension for stroke. PHYSICAL EXAMINATION: VITAL SIGNS: His temperature is 97 degrees, his pulse rate is 80, respirations are 18, his blood pressure is 140/86, O2 sats are 99% at present time. NEUROLOGIC: Cranial nerves II through XII are intact. Affect appropriate. Speech clear. NECK: Supple, no carotid bruits are present. LABORATORY DATA: . The patient's sodium is 137, his potassium is 4.1, his creatinine is 0.8. His albumin is 4.4. Urinalysis is unremarkable. IMPRESSION: This patient has onset of probably a TIA. I have reviewed his MRI scan it is negative. I believe overall issues are related to blood pressure control and since his blood pressure most recently is 124/78. I think he is stable to go home. I will follow up with him on outpatient basis. He should be on low-dose aspirin therapy and other stroke factor reduction treatment. JOB# [id number] MARICARMEN/CHRIS
== END 2018-10-11 15:30 | disposition home or self-care (01) | DRG 69 ==
LOC: ED 13:45 → 3A 15:59
PROVIDERS: ADMIT Internal Medicine; ATTEND Internal Medicine
DX: G45.9 Transient cerebral ischemic attack, unspecified (principal); E11.9 Type 2 diabetes mellitus without complications; I10 Essential (primary) hypertension; E78.2 Mixed hyperlipidemia; M19.90 Unspecified osteoarthritis, unspecified site; J32.0 Chronic maxillary sinusitis; E66.9 Obesity, unspecified; Z68.37 Body mass index [BMI] 37.0-37.9, adult; Z71.3 Dietary counseling and surveillance; Z79.899 Other long term (current) drug therapy; Z79.82 Long term (current) use of aspirin
CPT/HCPCS: 36415; 70450; 70551; 71046; 80053; 80061; 81001; 82962; 83036; 84484; 85025; 85027; 93005; 93010; 93306; 93880; G0378; A9270-GY; J1650

== ENCOUNTER 2021-03-06 21:27 | Emergency (ER) | payer MEDICARE ==
--- NOTE | 2021-03-07 01:24 | Emergency Department Report ---
ED General Adult HPI - General Chief complaint: Extremity Injury, Lower Stated complaint: CHEST PAINS Time Seen by Provider: 03/07/21 01:16 Source: patient Mode of arrival: Ambulatory Limitations: No Limitations - History of Present Illness Initial comments: Patient is 65 years old male with history of hypertension, diabetes and arthritis. Patient presented to the ER complaining of bilateral lower extremity swelling and sharp chest pain. He stated that the symptoms have been going on for more than 1 week now. Patient describes his chest pain as sharp to the left side with no radiation. Patient denies any shortness of breath. No fever or chills. - Related Data Home Medications Medication Instructions Recorded Confirmed Last Taken Metoprolol [Lopressor TAB] 50 mg PO DAILY 01/31/15 10/09/18 08/02/15 metFORMIN [Glucophage] 500 mg PO BID 01/31/15 10/09/18 08/02/15 hydroCHLOROthiazide [HCTZ] 12.5 mg PO DAILY 07/16/15 10/09/18 08/02/15 Aspirin [Aspirin BABY CHEW TAB] 81 mg PO DAILY 08/02/15 10/09/18 08/02/15 NIFEdipine XL [Procardia Xl] 90 mg PO DAILY 10/09/18 10/09/18 Unknown Previous Rx's Medication Instructions Recorded Last Taken Type Pantoprazole [Protonix TAB] 20 mg PO BID #60 tablet. 07/17/15 08/02/15 Rx Amoxicillin/K Clav Tab [Augmentin 1 each PO Q12HR #14 tablet 10/11/18 Unknown Rx 875MG TAB] AtorvaSTATin [Lipitor] 20 mg PO QHS #30 tablet 10/11/18 Unknown Rx Glimepiride [Amaryl] 2 mg PO QDDIAB #30 tablet 10/11/18 Unknown Rx oxyCODONE /ACETAMINOPHEN [Percocet 1 tab PO BID PRN #6 tablet 10/11/18 Unknown Rx 5/325 mg] Allergies Allergy/AdvReac Type Severity Reaction Status Date / Time No Known Allergies Allergy Verified 10/09/18 13:47 ED Review of Systems ROS: Stated complaint: CHEST PAINS Other details as noted in HPI Comment: All other systems reviewed and negative Constitutional: denies: chills, fever Respiratory: denies: cough, shortness of breath Cardiovascular: chest pain. denies: palpitations Gastrointestinal: denies: abdominal pain, nausea, vomiting Musculoskeletal: denies: back pain Neurological: denies: headache, weakness, numbness ED Past Medical Hx - Past Medical History Hx Hypertension: Yes Hx Congestive Heart Failure: No Hx Diabetes: Yes Hx Arthritis: Yes (right knee) Hx Asthma: No Hx COPD: No - Surgical History Additional Surgical History: right knee surgery, heart cath x3 - Social History Smoking Status: Never Smoker Substance Use Type: None - Medications Home Medications: Home Medications Medication Instructions Recorded Confirmed Last Taken Type Metoprolol [Lopressor TAB] 50 mg PO DAILY 01/31/15 10/09/18 08/02/15 History metFORMIN [Glucophage] 500 mg PO BID 01/31/15 10/09/18 08/02/15 History hydroCHLOROthiazide [HCTZ] 12.5 mg PO DAILY 07/16/15 10/09/18 08/02/15 History Pantoprazole [Protonix TAB] 20 mg PO BID #60 tablet. 07/17/15 10/09/18 08/02/15 Rx Aspirin [Aspirin BABY CHEW TAB] 81 mg PO DAILY 08/02/15 10/09/18 08/02/15 History NIFEdipine XL [Procardia Xl] 90 mg PO DAILY 10/09/18 10/09/18 Unknown History Amoxicillin/K Clav Tab [Augmentin 1 each PO Q12HR #14 tablet 10/11/18 Unknown Rx 875MG TAB] AtorvaSTATin [Lipitor] 20 mg PO QHS #30 tablet 10/11/18 Unknown Rx Glimepiride [Amaryl] 2 mg PO QDDIAB #30 tablet 10/11/18 Unknown Rx oxyCODONE /ACETAMINOPHEN [Percocet 1 tab PO BID PRN #6 tablet 10/11/18 Unknown Rx 5/325 mg] ED Physical Exam - General Limitations: No Limitations General appearance: alert, in no apparent distress - Head Head exam: Present: atraumatic, normocephalic, normal inspection - Eye Eye exam: Present: normal appearance, PERRL - ENT ENT exam: Present: normal exam, normal orophraynx, mucous membranes moist - Neck Neck exam: Present: normal inspection, full ROM. Absent: tenderness, meningismus - Respiratory Respiratory exam: Present: normal lung sounds bilaterally - Cardiovascular Cardiovascular Exam: Present: regular rate, normal rhythm, normal heart sounds - GI/Abdominal GI/Abdominal exam: Present: soft, normal bowel sounds. Absent: distended, tenderness, guarding, rebound, rigid, organomegaly, mass, bruit, pulsatile mass, hernia - Extremities Exam Extremities exam: Present: pedal edema - Back Exam Back exam: Present: normal inspection, full ROM. Absent: CVA tenderness (R), CVA tenderness (L) - Neurological Exam Neurological exam: Present: alert, oriented X3, CN II-XII intact, normal gait, reflexes normal - Psychiatric Psychiatric exam: Present: normal mood - Skin Skin exam: Present: warm, intact, normal color ED Course Vital Signs 03/06/21 03/06/21 21:52 21:53 Temperature 98.5 F Pulse Rate 85 83 Respiratory 18 Rate Blood Pressure 131/72 O2 Sat by Pulse 89 91 Oximetry ED Medical Decision Making - Lab Data Result diagrams: 03/07/21 01:32 03/07/21 01:32 - EKG Data -: EKG Interpreted by Mt EKG shows normal: sinus rhythm Rate: normal - EKG Data Interpretation: no acute changes - Radiology Data Radiology results: report reviewed - Medical Decision Making Patient is 65 years old male with history of hypertension, diabetes and arthritis. Patient presented to the ER complaining of bilateral lower extremity swelling and sharp chest pain. He stated that the symptoms have been going on for more than 1 week now. Patient describes his chest pain as sharp to the left side with no radiation. Patient denies any shortness of breath. No fever or chills. EKG is unremarkable. Chest x-ray is negative for acute finding. Labs reviewed and is unremarkable except for hyperglycemia. Patient given prescription for Lasix and advised to follow-up with his primary care physician in the next 2 to 3 days and to return to the ER if he develop any new symptoms. Critical care attestation.: If time is entered above; I have spent that time in minutes in the direct care of this critically ill patient, excluding procedure time. ED Disposition Clinical Impression: Peripheral edema, Acute chest pain Disposition: - TO HOME OR SELFCARE Is pt being admited?: No Condition: Stable Instructions: Chest Pain (ED), Edema, Nonspecific Chest Pain, Adult, [id number] Referrals: PRIMARY CARE,MD [Primary Care Provider] - 3-5 Days
--- NOTE | 2021-03-07 01:52 | XRay Report ---
XR chest 1V ap INDICATION / CLINICAL INFORMATION: Dyspnea COMPARISON: 08/31/2019 FINDINGS: SUPPORT DEVICES: None. HEART / MEDIASTINUM: No significant abnormality. LUNGS / PLEURA: Lungs are clear. Costophrenic sulci are sharp. No pneumothorax. ADDITIONAL FINDINGS: No significant additional findings. IMPRESSION: 1. No acute findings. Signer Name: Bartolo Bran MD Signed: 03/07/2021 1:48 AM Workstation Name: [id number]
[2021-03-07 01:54] LABS: Basophils # (Auto) 0.1 K/mm3 (0.0-0.1); Basophils % (Auto) 0.7 % (0.0-1.8); Eosinophils # (Auto) 0.1 K/mm3 (0.0-0.4); Eosinophils % (Auto) 0.6 % (0.0-4.3); Hematocrit 39.6 % (35.5-45.6); Hemoglobin 12.9 gm/dl (11.8-15.2); Lymphocytes # (Auto) 3.2 K/mm3 (1.2-5.4); Lymphocytes % (Auto) 34.5 % (13.4-35.0); Mean Corpuscular HGB Conc 33 % (32-34); Mean Corpuscular Volume 88 fl (84-94); Monocytes # (Auto) 1.3 K/mm3 (0.0-0.8); Monocytes % (Auto) 13.6 % (0.0-7.3); Platelet Count 263 K/mm3 (140-440); Red Blood Count 4.51 M/mm3 (3.65-5.03); Red Cell Distribution Width 14.4 % (13.2-15.2)
[2021-03-07 01:58] LABS: INR 1.07 (0.87-1.13)
[2021-03-07 01:59] LABS: Partial Thromboplastin Time 30.5 Sec. (24.2-36.6)
[2021-03-07 02:15] LABS: Alanine Aminotransferase 34 units/L (7-56); Albumin 4.7 g/dL (3.9-5); Bilirubin,Direct 0.3 mg/dL (0-0.2); Blood Urea Nitrogen 6 mg/dL (9-20); Hemolysis Index 2
[2021-03-07 02:18] LABS: BUN/Creatinine Ratio 9
[2021-03-07] MEDS ORDERED: ACETAMINOPHEN 325 MG TAB PO ONE (03:13)
[2021-03-07 04:34] VITALS: BP 144/85
--- NOTE | 2021-03-08 17:50 | Electrocardiograph Report ---
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
== END 2021-03-07 04:33 | disposition home or self-care (01) ==
LOC: ED 21:27
DX: R60.9 Edema, unspecified (principal); R07.9 Chest pain, unspecified; I10 Essential (primary) hypertension; E11.9 Type 2 diabetes mellitus without complications; Z98.890 Other specified postprocedural states; Z79.899 Other long term (current) drug therapy
CPT/HCPCS: 36415; 71045; 80048; 80076; 83880; 84484; 85025; 85610; 85730; 93005